=== PATIENT | male | born 2000 | race Caucasian/White ===

== ENCOUNTER → 2021-12-29 | Outpatient (CLI) | payer OTHER, SELFPAY ==
--- NOTE | 2021-12-29 | ASPOS_PTH ---
PATIENT: DEBBIE TAVAREZ LOC: [facility] U#:[id number] AGE/SX: 21/M ROOM: RE12/29/[address]: Dr. Jose Oden MD : 2000 BED: DIS: 12/29/2021 SPEC #: [id number] RECD: 12/29/21 10:30 STATUS: NICOLE MIRELES #: [id number] RENEA: 12/29/21 00:[address]: Jose Oden DEPT: CYTOLOGY RECD BY: Cristina Orellana Tissues: Neck, NOS Procedures: Surgery Specimen Level IV Cytology Other Fine Needle Asp on Site HEADER OPERATION: Right neck mass, fine needle aspiration PRE-OP DIAGNOSIS: Right neck mass TISSUE SUBMITTED: Right neck mass DIAGNOSIS CYTOLOGY Fine needle aspiration, right neck mass (smears and cell block): Benign squamous-lined cyst. See cytology study and comment. AM:homer 12/30/2021 COMMENT The specimen is evaluated at the time of FNA by Dr. Page. Immediate Evaluation = Abundant benign squamous cells and contents of cyst. An inflamed bronchial cleft cyst is favored. Clinical correlation is suggested. Case has been reviewed in consultation with Dr. Rutherford who concurs with the above diagnosis. IDC:[facility] CYTOLOGY STUDY Slides are reviewed. The specimen primary contains abundant benign squamous cells, blood and inflammatory cells. CYTOLOGY GROSS Received is 1.5 ml of dark brown fluid labeled with the patient's name, and designated right neck mass. Three imprints and three paps are made from the submitted fluid and the rest is added to Cyto[employer] for cell block preparation. Submitted for cytology study. / AM:homer 12/29/2021 TC:5 CPT: 29264, 32750, 31487, 50613
== END | disposition home or self-care (01) ==
PROVIDERS: Visit Provider Otolaryngology
DX: R22.1 Localized swelling, mass and lump, neck (principal)
CPT/HCPCS: 10021; 88161; 88305

== ENCOUNTER → 2022-01-08 | Outpatient (CLI) | payer OTHER, SELFPAY ==
--- NOTE | 2022-01-08 19:23 | CT_ITS ---
STUDY: CT SOFT TISSUE NECK WITH CONTRAST REASON FOR EXAM: Male, 21 years old. NECK LUMP, LOCALIZED SWELLING RADIATION DOSAGE (If Supplied By Facility): CTDIvol = ( 15.97 ) mGy, DLP = ( 490.63 ) mGycm TECHNIQUE: The patient was scanned in a multi-detector CT scanner. High resolution transaxial imaging was performed following intravenous administration of IV 75mL Isovue-370. Sagittal and coronal images were reconstructed. Individualized dose optimization techniques were used for this CT. COMPARISON: None. FINDINGS: Normal bilateral parotid glands. Normal bilateral submandibular glands. Parapharyngeal fat is preserved.. Normal bilateral carotid spaces. No gross stenosis. Normal visualized nasopharynx. Normal retropharyngeal space. Davis tonsils are not enlarged. No peritonsillar abscess. The visualized tongue, tongue base and oropharynx are normal. Normal sized submandibular lymph nodes are present. Normal sized posterior internal jugular and spinal accessory nodes are present bilaterally. On the right, an enlarged lymph node measuring 15 mm in diameter seen along the anterior internal jugular noris chain. Interposed between the superior left submandibular gland and anterior border of the left sternocleidomastoid muscle is an ovoid cystic lesion measuring 13 mm in maximal diameter, with this lesion showing a thin and slightly enhancing rim along the parasagittal images. There is asymmetric thickening of the adjacent anterior left sternocleidomastoid muscle and with slight haziness surrounding the anterior aspect of this muscle bundle. Right sternocleidomastoid muscle is unremarkable. The pterygoid and masseter muscles are unremarkable. Normal epiglottis, bilateral vallecula and hypopharynx. The pre-epiglottic and paraglottic adipose spaces are normal. Normal visualized bilateral piriform sinuses, aryepiglottic folds, vocal cords, and arytenoid-cricoid articulations. Normal bilateral lobes of the thyroid gland. Normal visualized pulmonary apices. Small incidental retention cyst noted within the left maxillary antrum. Visualized mastoid air cells are clear. Slight depression of the C6 superior endplate anteriorly consistent with old trauma. No acute fracture or subluxation. The visualized upper lungs are clear. CT/Soft Tissue Neck WITH Contrast IMPRESSION: 13 mm cystic lesion with slight rim enhancement between the superior left submandibular gland and left sternocleidomastoid muscle, secondary to small abscess or suppurative lymph node. Mild edema within the adjacent left sternocleidomastoid muscle. Mildly enlarged lymph node along the right anterior internal jugular noris chain. Unremarkable parotid and submandibular glands. Electronically Signed: Cholo Jones MD at 7:28 EDT ,
== END | disposition home or self-care (01) ==
PROVIDERS: Visit Provider Otolaryngology
DX: R22.1 Localized swelling, mass and lump, neck (principal)
CPT/HCPCS: 70491; Q9967